=== PATIENT | female | born 1955 | race Caucasian/White ===

== ENCOUNTER 2016-10-14 07:18 | Day surgery (SDC) | payer OTHER ==
[~2016-10-14 07:18] MED LIST: Sodium Chloride 0.9% 1,000 ML IV SCH; Sodium Chloride 0.9% 10 ML Syringe FLUSH PRN
[2016-10-14 11:04] VITALS: BP 167/92
--- NOTE | 2016-10-14 18:28 | OR ---
DATE OF OPERATION: 10/14/2016 PREOPERATIVE DIAGNOSIS: Esophageal ulcer. POSTOPERATIVE DIAGNOSES: 1. Esophageal diverticulum. 2. Esophageal ulcer with esophagitis. 3. Large hiatal hernia. 4. Gastroesophageal reflux disease. OPERATION: Upper endoscopy. COMPLICATIONS: None. DRAINS: None. SPECIMENS: None. ESTIMATED BLOOD LOSS: Zero. ANESTHESIA: General propofol anesthesia. INDICATION: Ms. Claros is a 60-year-old female who I am evaluating for repair of a large paraesophageal/hiatal hernia. She had a finding on upper GI that suggested possible large ulcer and I had decided to perform an upper endoscopy. The above-mentioned procedure was explained. The risks, benefits, and complications were explained. The patient understood and agreed, and she was brought to the operating room. DESCRIPTION OF PROCEDURE: The patient was brought to the operating room and placed in a left lateral decubitus position on the operating room table. Satisfactory general propofol anesthesia was administered. We began by placing the endoscope into the oral cavity and by direct visualization passing the endoscope down through the esophagus into the second portion of the duodenum. Evaluation was then carried out on withdrawal. There were no abnormalities identified in the duodenum. The stomach showed some areas of mild gastritis, and in retroflexion, we were able to identify a large hiatal hernia. The hiatal hernia measured approximately 5-7 cm in size, and there was irregularity of the Z-line with grade 2 or [id number] esophagitis identified along the Z-line and distal esophagus. There was a small superficial ulcer, which was 0.5 cm in size, and there was a large ulcer approximately 1 cm in size. This was pretty superficial as well with normal-appearing edges and showing signs of healing. There, however, was a reasonable small opening in the esophagus, which suggested a possible diverticulum just above the GE junction. The remainder of the esophagus was within normal limits. The endoscope was subsequently withdrawn after suctioning of the stomach. The patient tolerated the procedure well. There were no complications. Instrument count was correct. The patient was awoken in the OR and taken to the PACU for recovery. JOSÉ /[id number]
== END 2016-10-14 10:50 ==
LOC: LB.SDS 07:18
PROVIDERS: ATTEND Surgery
DX: K29.70 Gastritis, unspecified, without bleeding (principal); K22.10 Ulcer of esophagus without bleeding; K44.9 Diaphragmatic hernia without obstruction or gangrene; K20.9 Esophagitis, unspecified
CPT/HCPCS: 43235; J7040

== ENCOUNTER 2019-01-11 07:32 | Day surgery (SDC) | payer OTHER ==
[~2019-01-11 07:32] MED LIST changes: +Metoclopramide 10 MG/2 ML SDV IV PRN; -Sodium Chloride 0.9% 1,000 ML IV SCH; -Sodium Chloride 0.9% 10 ML Syringe FLUSH PRN
[2019-01-11] MEDS: Sodium Chloride 0.9% 1,000 ML IV SCH (08:45)
[2019-01-11] MEDS ORDERED: Propofol 1,000 MG/100 ML SDV ONE (10:30)
[2019-01-11 11:44] VITALS: BP 160/102; PULSE 68
--- NOTE | 2019-01-11 14:37 | OR ---
DATE OF OPERATION: 01/11/2019 PREOPERATIVE DIAGNOSIS: History of colon polyps. POSTOPERATIVE DIAGNOSIS: History of colon polyps. PROCEDURE: Colonoscopy with polypectomy. ANESTHESIA: MAC. ESTIMATED BLOOD LOSS: Minimal. COMPLICATIONS: None. INDICATION FOR THE PROCEDURE: The patient is a 63-year-old female who has had 2 previous colonoscopies, had 11 polyps on the first one and 5 polyps on the second one, which was 5 years ago. She otherwise denies any change in bowel habits. She is here today for surveillance colonoscopy. DESCRIPTION OF PROCEDURE: Informed consent was obtained from the patient. The patient was taken to the operating room and placed on the table in left lateral decubitus position. Monitored anesthesia care was administered. Digital rectal exam was performed and was normal. Colonoscope was then advanced through the anus and directed toward the cecum. She did have a tortuous sigmoid colon with mild amount of small diverticula present. I did reach the cecum identified by appendiceal orifice and ileocecal valve. Colonoscope was then slowly withdrawn. She did have a small sessile polyp at the splenic flexure. This was removed with hot biopsy polypectomy. The remainder of the colon was unremarkable. Retroflexion performed in the rectum was also otherwise unremarkable. Colonoscope was withdrawn. The patient tolerated the procedure well and was brought to recovery room in good condition. FINDINGS: Mild sigmoid diverticulosis and a small sessile splenic flexure polyp. RECOMMENDATIONS: Will follow up on biopsy results. Otherwise, would recommend repeat surveillance colonoscopy in 5 years due to polyps. Would also recommend high-fiber diet due to diverticulosis. ERNIE/NISHANT /[id number]
== END 2019-01-11 12:05 | disposition home or self-care (01) ==
LOC: LB.SDS 07:32
PROVIDERS: ATTEND Surgery
DX: Z12.11 Encounter for screening for malignant neoplasm of colon (principal); K57.30 Diverticulosis of large intestine without perforation or abscess without bleeding; K63.5 Polyp of colon; D12.3 Benign neoplasm of transverse colon; Z86.010 Personal history of colon polyps
CPT/HCPCS: 45384; 88305; G0121; J2704; J7030

== ENCOUNTER 2022-11-10 09:13 | Day surgery (SDC) | payer MEDICARE, OTHER ==
[2022-11-10] MEDS: Sodium Chloride 0.9% 1,000 ML IV SCH (09:50)
[2022-11-10 12:03] VITALS: BP 131/75; PULSE 63
== END 2022-11-10 12:35 | disposition home or self-care (01) ==
LOC: LB.SDS 09:13
PROVIDERS: ATTEND Surgery
DX: Z12.11 Encounter for screening for malignant neoplasm of colon (principal); K57.30 Diverticulosis of large intestine without perforation or abscess without bleeding; I10 Essential (primary) hypertension; F32.A Depression, unspecified; R73.9 Hyperglycemia, unspecified; Z79.899 Other long term (current) drug therapy; Z80.0 Family history of malignant neoplasm of digestive organs; Z79.84 Long term (current) use of oral hypoglycemic drugs
CPT/HCPCS: J2704; J7030